=== PATIENT | female | born 1960 | race African-American/Black ===

== ENCOUNTER 2018-11-22 06:47 | Outpatient (CLI) ==
--- NOTE | 2018-11-22 10:24 | DI ---
Exam: Two views of the chest. Comparison: None available. Reason for exam: Hypertension. FINDINGS: No pneumothorax, pleural effusion, or focal consolidation. The cardiac silhouette is not enlarged. The imaged osseous structures appear grossly unremarkable without acute fracture. Impression: No acute cardiopulmonary process.
--- NOTE | 2018-11-24 13:15 | ECHO2D ---
Date of Exam: 11/22/18 Ordering Physician: DR. RAMONA RAPP Room #: OP Reason for Echo: SOB, HTN, HX OF HEART SURGERY INFANT M-Mode Normal Adult Results LV Dimensions Normal Adult Results AoV Opening excursions >1.6 >1.6 LVEDD-base- 3.5-5.8 4.3 Ao root dimensions 2.0-3.7 2.9 LVESD-base- 3.1-4.6 L. Atrium dimensions 1.9-3.8 4.3 Post. Wall thickness 0.8-1.1 1.2 IV septum (thickness) 0.7-1.2 1.1 Post. Wall excursion 0.72-1.3 NORMAL Septal motion NORMAL Systolic motion R. Ventricular cavity 1.5-2.0 NORMAL LVEF 60% 58% Paradoxical septal wall motion NORMAL 2-D : 2-D M Mode Echocardiogram was performed using apical four chamber and left parasternal long and short axis views. Mitral, tricuspid and aortic valves appear to be normal. Contractility of the left ventricle seems to be normal, so is the cavity size. Enlarged Left atrial cavity Aortic root appears to be normal. There is no pericardial effusion. There is no thrombus noted in the left ventricular or left aortic cavity. No mitral valve prolapse noted. M-MODE: MV: NORMAL AV: NORMAL TV: NORMAL PV: CHAMBER SIZE: ENLARGED LEFT ATRIAL CAVITY WALL MOTION: NORMAL PERICARDIUM: NORMAL INTERPRETATION: 1. BORDERLINE LEFT VENTRICULAR HYPERTROPHY WITH ENLARGED LEFT ATRIAL CAVITY 2. NORMAL LEFT VENTRICULAR CONTRACTILITY 3. NORMAL VALVES MTDD
== END 2018-11-22 06:48 | disposition home or self-care (01) ==
LOC: CAR 06:47
PROVIDERS: ATTEND Internal Medicine
DX: R06.02 Shortness of breath (principal); E78.5 Hyperlipidemia, unspecified; I10 Essential (primary) hypertension; Z98.890 Other specified postprocedural states

== ENCOUNTER 2018-11-23 07:00 | Outpatient (CLI) ==
--- NOTE | 2018-11-24 13:05 | STRESSMOD ---
Date of Test: 11/23/18 Ordering Physician: DR. RAMONA RAPP Occupation: DISABLED Reason for Exam: SOB, HTN Smoking History: NONE Height: 66" Weight: 209 BLS Current Medications: ASA, HCTZ, CLONIDINE, METOPROLOL, MELOXICAM, OXYCODONE/ ACETAMINOPHEN Resting EKG: SINUS RHYTHM/NO ACUTE CHANGES Target Heart Rate: 138/163 S-T SEGMENT STAGE MPH/GRADE HEART RATE BPM BLOOD PRESSURE mmhg RHYTHM +/- ELEVATION DEPRESSION SYMPTOMS At Rest 64 BPM 122/74 MMHG SR X NONE 1 1.7/0% 110 BPM 128/76 MMHG SR X NONE 2 1.7/5% 140/72 MMHG SR X NONE 3 1.7/10% 4 2.5/12% 5 3.4/14% Immediately After 139 BPM 156/76 MMHG SR X FATIGUE Minutes Post Exercise 5:00 65 BPM 136/84 MMHG SR X FATIGUE Minutes Post Exercise DURATION OF EXERCISE: 8:34 MAXIMUM HEART RATE REACHED: 139 BMP REASON FOR TERMINATION: FATIGUE 98% OXYGEN SATURATION WITH EXERCISE ON ROOM AIR METS 5.0 INTERPRETATION: 1. NO EVIDENCE OF ISCHEMIA BY ST-T WAVE 2. NO CHEST PAIN OR DISCOMFORT 3. NO ARRHYTHMIAS 4.BLOOD PRESSURE RESPONSE: NORMAL NORMAL LEFT VENTRICULAR CONTRACTILITY--RESTING AND POST EXERCISE MTDD
--- NOTE | 2018-11-24 13:07 | ECHOSTRESS ---
Date of Exam: 11/23/18 Ordering Physician: DR. RAMONA RAPP Reason for Echo: SOB, HTN, STRESS TEST--NO ISCHEMIA M-Mode Normal Adult Results LV Dimensions Normal Adult Results AoV Opening excursions >1.6 LVEDD-base- 3.5-5.8 Ao root dimensions 2.0-3.7 LVESD-base- 3.1-4.6 L. Atrium dimensions 1.9-3.8 Post. Wall thickness 0.8-1.1 IV septum (thickness) 0.7-1.2 Post. Wall excursion 0.72-1.3 Septal motion Systolic motion R. Ventricular cavity 1.5-2.0 LVEF 60% Paradoxical septal wall motion 2-D: NORMAL LEFT VENTRICULAR CONTRACTILITY--RESTING AND POST EXERCISE M-MODE: MV: AV: TV: PV: CHAMBER SIZE: WALL MOTION: NORMAL LEFT VENTRICULAR CONTRACTILITY--RESTING AND POST EXERCISE PERICARDIUM: INTERPRETATION: 1.NORMAL LEFT VENTRICULAR CONTRACTILITY--RESTING AND POST EXERCISE MTDD
== END 2018-11-23 07:01 | disposition home or self-care (01) ==
LOC: CAR 07:00
PROVIDERS: ATTEND Internal Medicine
DX: R06.02 Shortness of breath (principal); I10 Essential (primary) hypertension